=== PATIENT | female | born 1935 | race Caucasian/White ===

== ENCOUNTER 2016-08-10 09:01 | Outpatient (CLI) | payer MEDICARE ==
--- NOTE | 2016-08-10 15:23 | CT ---
CT CHEST WITH CONTRAST CT ABDOMEN AND PELVIS WITH CONTRAST: CT Thoracic Spine with 3D Reformatted Imaging CT Lumbar Spine with 3D Reformatted Imaging Date: 08/10/16 CLINICAL HISTORY: Left breast malignancy. FINDINGS: Scattered patchy opacities of the lungs are most consistent with atelectasis. No evidence of pulmona ry mass or suspicious nodule. Left-sided cardiac pacing device is present with streak artifact limit ing visualization of the chest. Cardiac chambers are enlarged with coronary stent placement seen. Sc attered vascular calcification present. There is multifocal mass-like prominence of the left breast, some of which demonstrates fluid density. Patient has known breast malignancy, although a component may relate to postoperative findings in the correct clinical setting. There is overlying skin thick ening and generalized increased density of the left breast soft tissues. Mild pericardial fluid vers us thickening present. There are splenic granulomatous calcifications. There is fat and soft tissue density of the left adrenal gland most consistent with adrenal myolipoma. Dystrophic calcification o f the right breast is present. No thoracic adenopathy. There is diffuse fecal material throughout th e colon. Colonic diverticula are present. Minimal periappendiceal fat stranding is age-indeterminate . No abnormal dilatation of the appendix. Punctate hepatic calcifications are seen. Evaluation of th e regional skeletal structures reveals degenerative change. The osseous structures are limited in ev aluation on the basis of MIP reformatted imaging which could obscure osseous detail. If there is con cern for osseous metastatic disease, this should be further assessed with dedicated whole body bone scan. IMPRESSION: 1. Abnormal findings of the left breast. The patient has known left breast malignancy, although com ponent may be related to superimposed post treatment changes in the correct clinical context. 2. Heterogeneous enhancement pattern of the liver. Subtle foci of metastatic disease cannot be excl uded on the basis of this exam, although no dominant large metastatic lesion is otherwise identified within the liver. Consider PET/CT for further assessment. 3. 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 4. Constipation. 5. Incomplete assessment of the osseous structures as above, which may be further assessed with ded icated bone scan as clinically necessary. POS: KAYLAH
== END 2016-08-10 09:02 | disposition home or self-care (01) ==
LOC: BURCT 09:01
PROVIDERS: ATTEND Internal Medicine Hematology & Oncology
DX: C50.412 Malignant neoplasm of upper-outer quadrant of left female breast (principal); E27.9 Disorder of adrenal gland, unspecified; K59.00 Constipation, unspecified
CPT/HCPCS: 36415; 71260; 74177; 82565

== ENCOUNTER 2017-01-22 08:59 | Outpatient (CLI) | payer MEDICARE ==
--- NOTE | 2017-01-22 22:58 | CT ---
CT CHEST WITHOUT CONTRAST CT ABDOMEN AND PELVIS WITHOUT CONTRAST 01/22/[address] of the chest, abdomen and pelvis was performed for evaluation in this patient with a prior known malignant neoplasm. Comparison is made with the prior study dated 08/10/16 done at [facility]. Oral contrast was used. IV contrast was withheld today due to a low GFR. Axial slices were acquired, then coronal reconstructions were done. CT OF THE THORAX: The mediastinum shows no evidence of mass or adenopathy. There does appear to be a small pericardial effusion. Coronary artery calcifications were seen, particularly in the LAD. The aorta is normal in caliber. The lungs are clear with no infiltrate, mass, or sign of pleural effusion. The bony structures of the thorax shows some degenerative change of the thoracic spine. No bony dest ructive lesions were detected. Regarding the left breast, the mass lesion seen here on the prior CT scan has greatly reduced in size. IMPRESSION: 1. No evidence for metastatic disease. 2. Cardiomegaly and arteriosclerosis. Small pericardial effusion. 3. Left breast lesion has been reduced in size significantly since the July scan. CT OF THE ABDOMEN AND PELVIS: Spiral CT of the abdomen and pelvis was also compared with the 08/10/16 study. The liver, spleen, pancreas, and aorta showed no acute findings within the limitations of a noncontr ast scan. No hepatic lesions or suggestion of such was seen. A few calcified granulomas are seen in the liver. The internal portions of the patient's gallbladder seem rather dense. I would not be surp rised if there were sludge within it, though the wall does not appear thick. The kidneys showed no m ass or hydronephrosis. Once again noted is a left adrenal mass whose low CT density numbers are sugg estive of a myelolipoma or adenoma. Its 2.4 cm size has not changed over time. CT of the pelvis showed no pelvic masses, fluid collections, or adenopathy. No bony destructive lesi ons were seen in the spine or pelvis. There are extensive degenerative changes in the lumbar spine. IMPRESSION: No acute abdominal or pelvic findings. At most, there may be some very mild constipation. There was no evidence for metastatic disease. POS: HOME
== END 2017-01-22 09:00 | disposition home or self-care (01) ==
LOC: BURCT 08:59
PROVIDERS: ATTEND Internal Medicine Hematology & Oncology
DX: C50.412 Malignant neoplasm of upper-outer quadrant of left female breast (principal); I51.7 Cardiomegaly; I70.90 Unspecified atherosclerosis; I31.3 Pericardial effusion (noninflammatory); N64.9 Disorder of breast, unspecified
CPT/HCPCS: 36415; 71250; 74177; 82565

== ENCOUNTER 2018-06-16 07:44 | Outpatient (CLI) | payer MEDICARE ==
--- NOTE | 2018-06-16 21:33 | CT ---
CT CHEST, ABDOMEN, AND PELVIS WITHOUT CONTRAST: Date: 06-16-18 This study was ordered with IV contrast which would be preferred given the clinical history. Unfortun ately, the patient's GFR was 35 today, so it was felt to be best not to do the scan with IV contrast. A noncontrast study was done covering an area from the apices through the lungs through the pelvis. FINDINGS: CT THORAX: The lungs show no pulmonary nodules, infiltrate, or acute change. There is a questionable subtle grou nd glass area in the right lower lobe posteriorly, but looking back at the prior study I believe it i s there, just harder to see on the prior exam. I do not feel that there has been substantial change s schuyler the 2017 exam that it was compared with. The mediastinum shows no mass or adenopathy. The heart is mildly enlarged. Coronary artery calcifications are present. There is a 1.4 cm calcified mass in the right breast of no concern and it has not changed since the study. Two very faint nodular densities measuring about 6 mm each are seen deep to the right thomas st tissues near the chest wall. I can find them on the old study and they have not changed at all. Th ey are likely to be very small nodes. Some of the tissue in the lower outer quadrant of the right dayne ast seems faintly nodular, but this appearance has also not changed since the 01-22-17 study. A few l ymph nodes are seen in the right axilla, mainly containing fat and they have not changed either. Over all, the appearance of the chest is stable over the interval. CT ABDOMEN AND PELVIS: This noncontrast study showed no acute changes in the liver, spleen, pancreas, gallbladder or kidneys within the limitations of a noncontrast study. There is a 2.1 cm left adrenal mass that is nearly wa ter density in nature, almost certainly an adenoma. It has not changed over the interval. The aorta i s normal in caliber. CT of the pelvis showed no pelvic masses, fluid collections, or inflammatory changes. The thoracolumbar spine shows numerous degenerative changes throughout. A few sclerotic areas, partic ularly in the lumbar region, appear to be degenerative in nature. They have not changed in the interv al. Areas of central canal stenosis are seen at several levels in the lumbar spine, as high as L2. IMPRESSION: No significant findings in the chest, abdomen, or pelvis to suggest recurrent or metastatic disease a t this time. Some nodular areas in the lower outer right breast which are best examined by other mod alities, but seem similar to the prior exam. Exam was primarily compared with the 01-22-17 study. POS: HOME
== END 2018-06-16 07:45 | disposition home or self-care (01) ==
LOC: BURCT 07:44
PROVIDERS: ATTEND Internal Medicine Hematology & Oncology
DX: C80.1 Malignant (primary) neoplasm, unspecified (principal); N64.89 Other specified disorders of breast
CPT/HCPCS: 36415; 71250; 74177; 82565

== ENCOUNTER 2018-12-15 07:49 | Outpatient (CLI) | payer MEDICARE ==
--- NOTE | 2018-12-15 17:07 | CT ---
CT OF THE CHEST WITHOUT CONTRAST: Date: 12-15-18 Comparison: 06-16-18 Due to the patient's low GFR and prior studies to compare with, this exam was done without contrast a nd checked before the patient left the suite. It was felt to be sufficient for diagnostic purposes wi thout the necessity of further contrast being given. FINDINGS: No mediastinal mass or adenopathy was seen within the limitations of a noncontrast study. Coronary ar kathryn calcifications are present. There is no sign of pericardial effusion, though the cardiac size se ems larger today than it was on the prior exam. No pulmonary nodules of concern were seen today. As on the prior study, there was a minimal area of g round glass density in the right lower lobe posteriorly that does not seem much different than before . There are no effusions. The only real change I see since the prior scan is a minor pleural elevatio n in the left posterior hemithorax measuring 7-8 mm in width. It was not present before, though its a ppearance today is not very remarkable. This should be merely watched on future studies. No areas of bony destruction were appreciated on this exam. All visible bony structures appeared inta ct. Scans into the upper abdomen show fullness of the left adrenal gland as before that is presumably a s mall adenoma. This has the low CT numbers needed for such. It has not changed in size. No visible mas ses were seen in the area scanned. Previously, two very small nodules were noted in the soft tissues deep to the right breast tissue bet ween the breast tissue and chest wall, no more than 5 mm in size. Both are still present and neither has changed in any way. The calcified mass seen in the right breast is noted as usual and is unchange d. IMPRESSION: 1. No firm evidence of recurrent or metastatic disease. 2. Tiny soft tissue nodules deep to the right breast tissue near the chest wall have not changed in t he interval. 3. One small pleural based elevation in the left posterior hemithorax which was not present on the pr ior scan. This should be watched, though its current appearance is not very remarkable. 4. Cardiomegaly. The cardiac size appears to have increased slightly since the prior scan. POS: HOME
== END 2018-12-15 07:50 | disposition home or self-care (01) ==
LOC: EEVIPCON 07:49 → BURCT 07:49
PROVIDERS: ATTEND Internal Medicine Hematology & Oncology
DX: C50.919 Malignant neoplasm of unspecified site of unspecified female breast (principal); N63.10 Unspecified lump in the right breast, unspecified quadrant; I51.7 Cardiomegaly
CPT/HCPCS: 36415; 71250; 82565

== ENCOUNTER → 2019-05-26 | Emergency (ER) | payer MEDICARE | LOC: BURERS 07:56 | DX: T38.3X1A Poisoning by insulin and oral hypoglycemic [antidiabetic] drugs, accidental (unintentional), initial encounter (principal); I25.10 Atherosclerotic heart disease of native coronary artery without angina pectoris; I11.0 Hypertensive heart disease with heart failure; I50.9 Heart failure, unspecified; E11.9 Type 2 diabetes mellitus without complications; I48.91 Unspecified atrial fibrillation; Z79.899 Other long term (current) drug therapy; Z79.891 Long term (current) use of opiate analgesic; Z79.4 Long term (current) use of insulin | CPT/HCPCS: 36416; 99284 ==

== ENCOUNTER 2019-06-03 08:37 | Outpatient (CLI) | payer MEDICARE ==
[2019-06-03] MEDS ORDERED: Iopamidol 370 76% 100 ML VIAL ONE (09:25)
--- NOTE | 2019-06-03 13:10 | CT ---
CT CHEST AND ABDOMEN AND PELVIS WITH CONTRAST: History: Relapsed metastatic carcinoma. Comparison: CT examinations May 2018. Findings: The lungs are clear. No pneumothorax. No effusion. No suspicious pulmonary nodule. No mediastinal adenopathy. Heart size is enlarged. Small volume pericardial fluid. There are multiple hypodense masses of the pancreas, largest at the head/body junction measuring 2.5 cm in size. There is a small pancreatic tail cystic mass measuring 1.7 cm. There is mild third spacing of fluid. No dilated loops of large or small bowel. The appendix is visua lized and is normal. No hydronephrosis. Multiple calcified splenic granulomas. Multilevel degenerative disc space changes of the lumbar spine. Mild fullness of the left adrenal gland, similar. The cardiac generator projects over the left hemithorax. Prior left mastectomy. No axillary adenopathy. Nodular density inferior right breast incompletely evaluated on the basis of this exam, although it d oes appear similar. The liver is mildly enlarged with a heterogeneous appearance, likely sequelae of chronic congestive c hanges from diastolic cardiac dysfunction. Gallbladder sludge. Impression: 1. No evidence for metastatic disease within the chest, abdomen, or pelvis. 2. Mild third spacing of fluid. 3. No acute inflammatory process. 4. Marked cardiomegaly with small volume pericardial fluid. 5. Hypodensities of the pancreas for which followup pancreatic protocol MRI is recommended. Transcribed Date/Time: 06/03/2019 1:41 PM
== END 2019-06-03 08:38 | disposition home or self-care (01) ==
LOC: BURCT 08:37
PROVIDERS: ATTEND Internal Medicine Hematology & Oncology
DX: Z01.812 Encounter for preprocedural laboratory examination (principal); C50.412 Malignant neoplasm of upper-outer quadrant of left female breast; N18.3 Chronic kidney disease, stage 3 (moderate); D63.1 Anemia in chronic kidney disease; D50.8 Other iron deficiency anemias; I51.7 Cardiomegaly; K86.89 Other specified diseases of pancreas
CPT/HCPCS: 36415; 71260; 74177; 82565; Q9967

== ENCOUNTER 2019-10-22 13:42 | Inpatient (IN) | payer MEDICARE ==
[2019-10-22] MEDS ORDERED: Dextrose 50% Abboject 50 ML SYRINGE SLOW IVP PRN (18:12)
[2019-10-22] MEDS ORDERED: Dextrose 5% in Water 1,000 ML IV PRN (18:12)
[2019-10-22] MEDS: Senokot S 8.6-50 MG TAB PO SCH (21:11)
[2019-10-22] MEDS: Saccharomyces boulardii 250 MG CAP PO SCH (21:11)
[2019-10-22] MEDS: Temazepam 15 MG CAP PO PRN (21:12)
[2019-10-22] MEDS: Cephalexin 250 MG CAP PO SCH (21:12)
[2019-10-22] MEDS: Potassium Chloride 20 MEQ TAB PO SCH (21:12)
[2019-10-22] MEDS: Apixaban 2.5 MG TAB PO SCH (21:12)
[2019-10-22] MEDS ORDERED: HumaLOG 300 UNITS/3 ML VIAL SC SCH (21:15)
[2019-10-23 05:32] LABS: Hemoglobin 8.3 g/dL (12.0-16.0)
[2019-10-23 05:42] LABS: Anion Gap 14 mmol/L (10-20); BUN (Urea Nitrogen) 19 mg/dL (9.8-20.1); Calc. Creatinine Clearance 0 mL/min (70-130); Calcium 8.8 mg/dL (7.8-10.44); Carbon Dioxide 26 mmol/L (23-31); Chloride 105 mmol/L (98-107); Estimated GFR-MDRD 49; Glucose 186 mg/dL (83-110); Potassium 4.1 mmol/L (3.5-5.1); Sodium 141 mmol/L (136-145)
[2019-10-23] MEDS: Cephalexin 250 MG CAP PO SCH ×3 (08:52→21:41)
[2019-10-23] MEDS: Latanoprost 0.005% Ophth Soln 2.5 ml Bottle EA EYE SCH (08:52)
[2019-10-23] MEDS: Cyanocobalamin (Vitamin B-12) 1,000 MCG TAB PO SCH (08:52)
[2019-10-23] MEDS: Thiamine 100 MG TAB PO SCH (08:52)
[2019-10-23] MEDS: Potassium Chloride 20 MEQ TAB PO SCH ×2 (08:53→21:40)
[2019-10-23] MEDS: Senokot S 8.6-50 MG TAB PO SCH ×2 (08:53→21:40)
[2019-10-23] MEDS: Folic Acid 1 MG TAB PO SCH (08:53)
[2019-10-23] MEDS: Carvedilol 6.25 MG TAB PO SCH ×2 (08:53→17:40)
[2019-10-23] MEDS: Apixaban 2.5 MG TAB PO SCH ×2 (08:53→21:41)
[2019-10-23] MEDS: Losartan Potassium 50 MG TAB PO SCH (08:56)
[2019-10-23] MEDS: Lantus 1000 UNITS/10 ML VIAL SC SCH (08:56)
[2019-10-23] MEDS: Multivit, Therapeutic 1 TAB PO SCH (08:56)
[2019-10-23] MEDS: Polyethylene Glycol 3350 17 GM Packet PO SCH (08:56)
[2019-10-23] MEDS: CALCIUM CARBONATE 600 MG PO SCH (08:57)
[2019-10-23] MEDS: HumaLOG 300 UNITS/3 ML VIAL SC PRN ×4 (08:57→21:41)
[2019-10-23] MEDS: CRANBERRY 500 MG PO SCH (08:57)
[2019-10-23] MEDS: Torsemide 20 MG TAB PO SCH ×2 (08:59→14:24)
[2019-10-23] MEDS ORDERED: Prevnar 13-Val Conj/PF 0.5 ML SYRINGE IM ONE (09:00)
[2019-10-23] MEDS: Temazepam 15 MG CAP PO PRN (21:40)
[2019-10-23] MEDS: Saccharomyces boulardii 250 MG CAP PO SCH (21:40)
--- NOTE | 2019-10-24 06:39 | HP ---
HISTORY OF PRESENT ILLNESS: 84-year-old white female, admitted to [facility] on 10/13/19 with altered mental status with a large right proximal forearm laceration and hematoma status post fall one week prior to arrival. She received one unit of packed cells to correct an initial hemoglobin of 6.4. She has a past medical history of chronic AFib, anticoagulated on Eliquis. Initial ortho, Dr. Wang, was consulted upon her admission advised irrigation, debridement of wound and evacuation hematoma, but family refused to consent to general anesthesia given her fragile state of health at that time. She subsequently underwent ICD interrogation, which revealed ongoing AFib. She has reduced EF at 25%, severe MR and TR, and ischemic cardiomyopathy. Based upon the EP study, it was determined that there was no ventricular tachyarrhythmia that likely contributed to her fall. She was in atrial fibrillation most of the time, but her ventricular rate was well controlled. Based on her CHADS score, It was she is at increased risk for stroke, but cardiology questioned the long-term benefit of continued anticoagulation considering her risk of falls. Infectious Diseases, Dr. Cotto was consulted and after evaluating the wound on 10/15/2019, he advised that long-term antibiotics would likely not be needed; however, at that time he was under the impression that she would be going for surgical debridement, which she never did. ALLERGIES: SULFA. MEDICATIONS: 1. Losartan 25 mg daily. 2. Eliquis 2.5 mg b.i.d. 3. Temazepam 15 mg p.o. nightly p.r.n. 4. Carvedilol 6.25 mg b.i.d. 5. MiraLAX p.o. daily p.r.n. 6. Docusate/Senokot S one tablet b.i.d. p.r.n. 7. Cephalexin 500 mg p.o. t.i.d. 8. Retacrit 40,000 units subcutaneous once weekly. 9. 15 units subcutaneous Lantus daily. 10. Mild sliding scale Humalog. 11. Torsemide 20 mg b.i.d. 12. Calcium carbonate 600 mg p.o. daily. 13. Multivitamin once daily. 14. Florastor 250 mg daily. 15. Latanoprost one drop each eye daily. 16. Pantoprazole 40 mg daily. 17. Potassium chloride 20 mEq b.i.d. 18. B12 1000 mcg p.o. daily. 19. Folic acid 1 mg daily. 20. Thiamine 100 mg daily. 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 She has anemia of chronic disease with adequate renal function. She has ischemic cardiomyopathy, atrial fibrillation, left heart failure with a 25% EF, AICD, anticoagulated. DMT2, hypertension, CAD status post PTCA/stent. PAST SURGICAL HISTORY: Left total mastectomy, ICD with BiV pacemaker, hysterectomy. SOCIAL HISTORY: She lives alone in [place] near her son and [id number]. She is a nonsmoker, no alcohol. FAMILY HISTORY: Noncontributory. REVIEW OF SYSTEMS: Limited as patient is confused and disoriented. PHYSICAL EXAMINATION: VITAL SIGNS: Temperature 98.4, heart rate 94, respirations 18, blood pressure 130/60. She is 96% on room air. GENERAL: Alert and oriented to person only. She is pleasant and cooperative with exam. HEENT: Normocephalic, atraumatic. PERRLA. EOMI. NECK: Supple. No carotid bruits. No JVD without lymphadenopathy or thyromegaly. CV: Regular rate and rhythm without murmur or ectopy. LUNGS: Clear to auscultation bilaterally. Respirations are unlabored. ABDOMEN: Soft, nondistended, nontender. Positive bowel sounds at all 4 quadrants. No masses or megaly. EXTREMITIES: No clubbing, cyanosis, or edema. 2+ peripheral pulses. NEURO: CN 2 through 12 intact. Generalized weakness and decreased coordination. However, bight maker and foot pushes are equal. PERTINENT LABORATORY DATA: Her H and H this morning was 8.3 and 27.5, her platelet count is 250, WBCs 7.4. Her sodium 142, potassium 3.3, chloride 105, carbon dioxide 30, BUN is 21, creatinine 0.98. Her most recent glucose was 150. ASSESSMENT: 1. Open wound right elbow measures approximately 4 x 4 x 4 with large hematoma distal to wound. 2. Chronic atrial fibrillation, anticoagulated on Eliquis; however, her exam today was regular rate and rhythm. 3. Compromised cardiovascular status related to ischemic cardiomyopathy with left heart failure, reduced ejection fraction. PLAN: I spoke with [id number], who says they will be willing to allow her to travel to [place] for day surgery to have the elbow wound irrigated, debrided so that she could then have a wound VAC placed. Continue PT/OT to maximize a return of prior functional and cognitive status. Job ID: [id number] [facility] HOSPITALJameson
[2019-10-24] MEDS: Polyethylene Glycol 3350 17 GM Packet PO SCH (10:06)
[2019-10-24] MEDS: Cephalexin 250 MG CAP PO SCH ×3 (10:06→20:15)
[2019-10-24] MEDS: Latanoprost 0.005% Ophth Soln 2.5 ml Bottle EA EYE SCH (10:06)
[2019-10-24] MEDS: Folic Acid 1 MG TAB PO SCH (10:07)
[2019-10-24] MEDS: Losartan Potassium 50 MG TAB PO SCH (10:07)
[2019-10-24] MEDS: Carvedilol 6.25 MG TAB PO SCH ×2 (10:07→16:27)
[2019-10-24] MEDS: Potassium Chloride 20 MEQ TAB PO SCH ×2 (10:10→20:16)
[2019-10-24] MEDS: Multivit, Therapeutic 1 TAB PO SCH (10:10)
[2019-10-24] MEDS: Cyanocobalamin (Vitamin B-12) 1,000 MCG TAB PO SCH (10:10)
[2019-10-24] MEDS: Apixaban 2.5 MG TAB PO SCH ×2 (10:11→20:15)
[2019-10-24] MEDS: Senokot S 8.6-50 MG TAB PO SCH ×2 (10:11→20:16)
[2019-10-24] MEDS: Lantus 1000 UNITS/10 ML VIAL SC SCH (10:11)
[2019-10-24] MEDS: Thiamine 100 MG TAB PO SCH (10:11)
[2019-10-24] MEDS: CRANBERRY 500 MG PO SCH (13:08)
[2019-10-24] MEDS: CALCIUM CARBONATE 600 MG PO SCH (13:08)
[2019-10-24] MEDS: HumaLOG 300 UNITS/3 ML VIAL SC PRN ×3 (13:09→20:33)
[2019-10-24] MEDS: Torsemide 20 MG TAB PO SCH ×2 (13:14→16:27)
[2019-10-24] MEDS: Temazepam 15 MG CAP PO PRN (20:16)
[2019-10-24] MEDS: Saccharomyces boulardii 250 MG CAP PO SCH (20:16)
[2019-10-25] MEDS: Senokot S 8.6-50 MG TAB PO SCH ×2 (09:33→20:40)
[2019-10-25] MEDS: Polyethylene Glycol 3350 17 GM Packet PO SCH (09:35)
[2019-10-25] MEDS: Torsemide 20 MG TAB PO SCH ×2 (09:36→16:10)
[2019-10-25] MEDS: Losartan Potassium 50 MG TAB PO SCH (09:36)
[2019-10-25] MEDS: Multivit, Therapeutic 1 TAB PO SCH (09:36)
[2019-10-25] MEDS: Carvedilol 6.25 MG TAB PO SCH ×2 (09:38→16:10)
[2019-10-25] MEDS: Cephalexin 250 MG CAP PO SCH ×3 (09:38→20:39)
[2019-10-25] MEDS: Folic Acid 1 MG TAB PO SCH (09:38)
[2019-10-25] MEDS: Thiamine 100 MG TAB PO SCH (09:39)
[2019-10-25] MEDS: Cyanocobalamin (Vitamin B-12) 1,000 MCG TAB PO SCH (09:39)
[2019-10-25] MEDS: Lantus 1000 UNITS/10 ML VIAL SC SCH (09:40)
[2019-10-25] MEDS: Latanoprost 0.005% Ophth Soln 2.5 ml Bottle EA EYE SCH (09:40)
[2019-10-25] MEDS: CALCIUM CARBONATE 600 MG PO SCH (09:44)
[2019-10-25] MEDS: Apixaban 2.5 MG TAB PO SCH ×2 (09:44→20:40)
[2019-10-25] MEDS: CRANBERRY 500 MG PO SCH (09:45)
[2019-10-25] MEDS: Potassium Chloride 20 MEQ TAB PO SCH ×2 (09:45→20:40)
[2019-10-25] MEDS: HumaLOG 300 UNITS/3 ML VIAL SC PRN ×2 (18:59→20:38)
[2019-10-25] MEDS: Saccharomyces boulardii 250 MG CAP PO SCH (20:40)
[2019-10-25] MEDS: Temazepam 15 MG CAP PO PRN (20:43)
[2019-10-26] MEDS: Cyanocobalamin (Vitamin B-12) 1,000 MCG TAB PO SCH (08:29)
[2019-10-26] MEDS: Polyethylene Glycol 3350 17 GM Packet PO SCH (08:29)
[2019-10-26] MEDS: Latanoprost 0.005% Ophth Soln 2.5 ml Bottle EA EYE SCH (08:29)
[2019-10-26] MEDS: Multivit, Therapeutic 1 TAB PO SCH (08:30)
[2019-10-26] MEDS: Cephalexin 250 MG CAP PO SCH ×3 (08:30→20:53)
[2019-10-26] MEDS: Potassium Chloride 20 MEQ TAB PO SCH ×2 (08:30→20:52)
[2019-10-26] MEDS: Thiamine 100 MG TAB PO SCH (08:30)
[2019-10-26] MEDS: Apixaban 2.5 MG TAB PO SCH ×2 (08:30→20:54)
[2019-10-26] MEDS: Torsemide 20 MG TAB PO SCH ×2 (08:30→14:22)
[2019-10-26] MEDS: Lantus 1000 UNITS/10 ML VIAL SC SCH (08:30)
[2019-10-26] MEDS: Senokot S 8.6-50 MG TAB PO SCH ×2 (08:30→20:55)
[2019-10-26] MEDS: Folic Acid 1 MG TAB PO SCH (08:30)
[2019-10-26] MEDS: HumaLOG 300 UNITS/3 ML VIAL SC PRN ×4 (08:31→20:59)
[2019-10-26] MEDS: CALCIUM CARBONATE 600 MG PO SCH (08:31)
[2019-10-26] MEDS: CRANBERRY 500 MG PO SCH (08:31)
[2019-10-26] MEDS: Carvedilol 6.25 MG TAB PO SCH ×2 (09:11→17:34)
[2019-10-26] MEDS: Losartan Potassium 50 MG TAB PO SCH (09:13)
[2019-10-26] MEDS: Saccharomyces boulardii 250 MG CAP PO SCH (20:51)
[2019-10-26] MEDS: Temazepam 15 MG CAP PO PRN (20:55)
[2019-10-26] MEDS: hydrOXYzine 10 MG TAB PO SCH (21:03)
[2019-10-27] MEDS: hydrOXYzine 10 MG TAB PO SCH ×3 (06:09→20:42)
[2019-10-27] MEDS: Polyethylene Glycol 3350 17 GM Packet PO SCH (09:43)
[2019-10-27] MEDS: Cephalexin 250 MG CAP PO SCH ×3 (09:45→20:41)
[2019-10-27] MEDS: Multivit, Therapeutic 1 TAB PO SCH (09:45)
[2019-10-27] MEDS: Potassium Chloride 20 MEQ TAB PO SCH ×2 (09:45→20:41)
[2019-10-27] MEDS: Apixaban 2.5 MG TAB PO SCH ×2 (09:46→20:41)
[2019-10-27] MEDS: Thiamine 100 MG TAB PO SCH (09:46)
[2019-10-27] MEDS: Folic Acid 1 MG TAB PO SCH (09:46)
[2019-10-27] MEDS: Cyanocobalamin (Vitamin B-12) 1,000 MCG TAB PO SCH (09:46)
[2019-10-27] MEDS: Losartan Potassium 50 MG TAB PO SCH (09:47)
[2019-10-27] MEDS: Carvedilol 6.25 MG TAB PO SCH ×2 (09:48→16:31)
[2019-10-27] MEDS: Lantus 1000 UNITS/10 ML VIAL SC SCH (09:51)
[2019-10-27] MEDS: Latanoprost 0.005% Ophth Soln 2.5 ml Bottle EA EYE SCH (09:54)
[2019-10-27] MEDS: CALCIUM CARBONATE 600 MG PO SCH (09:59)
[2019-10-27] MEDS: CRANBERRY 500 MG PO SCH (10:02)
[2019-10-27] MEDS: Senokot S 8.6-50 MG TAB PO SCH ×2 (10:03→20:41)
[2019-10-27] MEDS: Torsemide 20 MG TAB PO SCH ×2 (10:04→14:10)
[2019-10-27] MEDS: HumaLOG 300 UNITS/3 ML VIAL SC PRN (12:59)
[2019-10-27] MEDS: Saccharomyces boulardii 250 MG CAP PO SCH (20:41)
[2019-10-27] MEDS: Temazepam 15 MG CAP PO PRN (20:41)
[2019-10-28] MEDS: hydrOXYzine 10 MG TAB PO SCH ×3 (05:03→21:17)
[2019-10-28] MEDS: Polyethylene Glycol 3350 17 GM Packet PO SCH (09:03)
[2019-10-28] MEDS: Latanoprost 0.005% Ophth Soln 2.5 ml Bottle EA EYE SCH (09:03)
[2019-10-28] MEDS: Potassium Chloride 20 MEQ TAB PO SCH ×2 (09:04→21:17)
[2019-10-28] MEDS: Cephalexin 250 MG CAP PO SCH ×3 (09:04→21:16)
[2019-10-28] MEDS: Multivit, Therapeutic 1 TAB PO SCH (09:04)
[2019-10-28] MEDS: Calcium Carbonate 500 MG TAB PO SCH (09:05)
[2019-10-28] MEDS: Senokot S 8.6-50 MG TAB PO SCH ×2 (09:08→21:17)
[2019-10-28] MEDS: Thiamine 100 MG TAB PO SCH (09:08)
[2019-10-28] MEDS: Losartan Potassium 50 MG TAB PO SCH (09:09)
[2019-10-28] MEDS: Cyanocobalamin (Vitamin B-12) 1,000 MCG TAB PO SCH (09:09)
[2019-10-28] MEDS: Folic Acid 1 MG TAB PO SCH (09:09)
[2019-10-28] MEDS: Apixaban 2.5 MG TAB PO SCH ×2 (09:10→21:16)
[2019-10-28] MEDS: Carvedilol 6.25 MG TAB PO SCH ×2 (09:10→17:36)
[2019-10-28] MEDS: Lantus 1000 UNITS/10 ML VIAL SC SCH (09:16)
[2019-10-28] MEDS: Torsemide 20 MG TAB PO SCH ×2 (09:21→14:13)
[2019-10-28] MEDS: HumaLOG 300 UNITS/3 ML VIAL SC PRN ×3 (12:52→21:17)
[2019-10-28] MEDS: Fluconazole 100 MG TAB PO SCH (14:06)
[2019-10-28] MEDS: Saccharomyces boulardii 250 MG CAP PO SCH (21:17)
[2019-10-29] MEDS: hydrOXYzine 10 MG TAB PO SCH ×3 (05:47→20:25)
[2019-10-29] MEDS ORDERED: EPOETIN ALFA-EPBX (ESRD) 40,000 UNIT/ML VIAL SC SCH (09:00)
[2019-10-29] MEDS: Lantus 1000 UNITS/10 ML VIAL SC SCH (10:04)
[2019-10-29] MEDS: HumaLOG 300 UNITS/3 ML VIAL SC PRN ×3 (10:06→18:35)
[2019-10-29] MEDS: Latanoprost 0.005% Ophth Soln 2.5 ml Bottle EA EYE SCH (10:09)
[2019-10-29] MEDS: Apixaban 2.5 MG TAB PO SCH ×2 (10:11→20:25)
[2019-10-29] MEDS: Losartan Potassium 50 MG TAB PO SCH (10:11)
[2019-10-29] MEDS: Senokot S 8.6-50 MG TAB PO SCH ×2 (10:11→20:24)
[2019-10-29] MEDS: Polyethylene Glycol 3350 17 GM Packet PO SCH (10:11)
[2019-10-29] MEDS: Thiamine 100 MG TAB PO SCH (10:11)
[2019-10-29] MEDS: Folic Acid 1 MG TAB PO SCH (10:11)
[2019-10-29] MEDS: Cyanocobalamin (Vitamin B-12) 1,000 MCG TAB PO SCH (10:12)
[2019-10-29] MEDS: Cephalexin 250 MG CAP PO SCH ×3 (10:12→20:23)
[2019-10-29] MEDS: Carvedilol 6.25 MG TAB PO SCH ×2 (10:13→16:54)
[2019-10-29] MEDS: Multivit, Therapeutic 1 TAB PO SCH (10:13)
[2019-10-29] MEDS: Potassium Chloride 20 MEQ TAB PO SCH ×2 (10:13→20:24)
[2019-10-29] MEDS: Torsemide 20 MG TAB PO SCH ×2 (10:28→14:29)
[2019-10-29] MEDS: Calcium Carbonate 500 MG TAB PO SCH (14:30)
[2019-10-29] MEDS ORDERED: Calcium Carbonate 500 MG TAB PO SCH (14:30)
[2019-10-29] MEDS: Saccharomyces boulardii 250 MG CAP PO SCH (20:23)
[2019-10-29] MEDS ORDERED: HumaLOG 300 UNITS/3 ML VIAL SC PRN (20:39)
[2019-10-30] MEDS: hydrOXYzine 10 MG TAB PO SCH ×3 (05:57→20:55)
[2019-10-30] MEDS: HumaLOG 300 UNITS/3 ML VIAL SC PRN ×4 (08:17→20:45)
[2019-10-30] MEDS: Lantus 1000 UNITS/10 ML VIAL SC SCH (08:18)
[2019-10-30] MEDS: Cephalexin 250 MG CAP PO SCH ×3 (08:20→20:46)
[2019-10-30] MEDS: Polyethylene Glycol 3350 17 GM Packet PO SCH (08:21)
[2019-10-30] MEDS: Losartan Potassium 50 MG TAB PO SCH (08:21)
[2019-10-30] MEDS: Folic Acid 1 MG TAB PO SCH (08:22)
[2019-10-30] MEDS: Thiamine 100 MG TAB PO SCH (08:22)
[2019-10-30] MEDS: Calcium Carbonate 500 MG TAB PO SCH (08:22)
[2019-10-30] MEDS: Senokot S 8.6-50 MG TAB PO SCH ×2 (08:23→20:47)
[2019-10-30] MEDS: Cyanocobalamin (Vitamin B-12) 1,000 MCG TAB PO SCH (08:23)
[2019-10-30] MEDS: Multivit, Therapeutic 1 TAB PO SCH (08:23)
[2019-10-30] MEDS: Carvedilol 6.25 MG TAB PO SCH ×2 (08:23→15:36)
[2019-10-30] MEDS: Apixaban 2.5 MG TAB PO SCH ×2 (08:23→20:46)
[2019-10-30] MEDS: Latanoprost 0.005% Ophth Soln 2.5 ml Bottle EA EYE SCH (08:24)
[2019-10-30] MEDS: Potassium Chloride 20 MEQ TAB PO SCH ×2 (08:24→20:46)
[2019-10-30] MEDS: Torsemide 20 MG TAB PO SCH ×2 (12:25→15:37)
[2019-10-30] MEDS: Saccharomyces boulardii 250 MG CAP PO SCH (20:46)
[2019-10-31] MEDS: hydrOXYzine 10 MG TAB PO SCH ×3 (05:11→21:18)
[2019-10-31] MEDS: Cephalexin 250 MG CAP PO SCH ×3 (08:49→21:19)
[2019-10-31] MEDS: Potassium Chloride 20 MEQ TAB PO SCH ×2 (08:50→21:21)
[2019-10-31] MEDS: Losartan Potassium 50 MG TAB PO SCH (08:50)
[2019-10-31] MEDS: Apixaban 2.5 MG TAB PO SCH ×2 (08:50→21:20)
[2019-10-31] MEDS: Carvedilol 6.25 MG TAB PO SCH ×2 (08:50→17:57)
[2019-10-31] MEDS: Cyanocobalamin (Vitamin B-12) 1,000 MCG TAB PO SCH (08:50)
[2019-10-31] MEDS: Folic Acid 1 MG TAB PO SCH (08:50)
[2019-10-31] MEDS: Multivit, Therapeutic 1 TAB PO SCH (08:50)
[2019-10-31] MEDS: Calcium Carbonate 500 MG TAB PO SCH (08:51)
[2019-10-31] MEDS: Thiamine 100 MG TAB PO SCH (08:51)
[2019-10-31] MEDS: Polyethylene Glycol 3350 17 GM Packet PO SCH (08:51)
[2019-10-31] MEDS: Senokot S 8.6-50 MG TAB PO SCH ×2 (08:51→21:19)
[2019-10-31] MEDS: Lantus 1000 UNITS/10 ML VIAL SC SCH (09:45)
[2019-10-31] MEDS: HumaLOG 300 UNITS/3 ML VIAL SC PRN ×2 (09:45→17:59)
[2019-10-31] MEDS: Torsemide 20 MG TAB PO SCH ×2 (09:46→15:38)
[2019-10-31] MEDS: Fluconazole 100 MG TAB PO SCH (15:39)
[2019-10-31] MEDS: Latanoprost 0.005% Ophth Soln 2.5 ml Bottle EA EYE SCH (15:42)
[2019-10-31] MEDS ORDERED: HumaLOG 300 UNITS/3 ML VIAL SC SCH (20:15)
[2019-10-31] MEDS: Saccharomyces boulardii 250 MG CAP PO SCH (21:20)
[2019-11-01] MEDS: hydrOXYzine 10 MG TAB PO SCH ×3 (05:12→21:44)
[2019-11-01] MEDS: Apixaban 2.5 MG TAB PO SCH ×2 (09:01→20:57)
[2019-11-01] MEDS: Folic Acid 1 MG TAB PO SCH (09:01)
[2019-11-01] MEDS: Cephalexin 250 MG CAP PO SCH ×3 (09:01→20:55)
[2019-11-01] MEDS: Calcium Carbonate 500 MG TAB PO SCH (09:01)
[2019-11-01] MEDS: Potassium Chloride 20 MEQ TAB PO SCH ×2 (09:01→20:54)
[2019-11-01] MEDS: Thiamine 100 MG TAB PO SCH (09:02)
[2019-11-01] MEDS: Multivit, Therapeutic 1 TAB PO SCH (09:02)
[2019-11-01] MEDS: Senokot S 8.6-50 MG TAB PO SCH ×2 (09:02→20:55)
[2019-11-01] MEDS: Torsemide 20 MG TAB PO SCH ×2 (09:02→14:43)
[2019-11-01] MEDS: Losartan Potassium 50 MG TAB PO SCH (09:02)
[2019-11-01] MEDS: Carvedilol 6.25 MG TAB PO SCH ×2 (09:03→17:52)
[2019-11-01] MEDS: Cyanocobalamin (Vitamin B-12) 1,000 MCG TAB PO SCH (09:03)
[2019-11-01] MEDS: Polyethylene Glycol 3350 17 GM Packet PO SCH (09:04)
[2019-11-01] MEDS: Lantus 1000 UNITS/10 ML VIAL SC SCH (09:04)
[2019-11-01] MEDS: Latanoprost 0.005% Ophth Soln 2.5 ml Bottle EA EYE SCH (09:05)
[2019-11-01] MEDS: HumaLOG 300 UNITS/3 ML VIAL SC PRN ×3 (12:18→20:53)
[2019-11-01] MEDS: Saccharomyces boulardii 250 MG CAP PO SCH (20:55)
[2019-11-02 04:06] VITALS: BMI 23.7
[2019-11-02] MEDS: hydrOXYzine 10 MG TAB PO SCH ×3 (05:28→21:14)
[2019-11-02 05:34] LABS: Platelet Count 215 thou/uL (130-400)
[2019-11-02] MEDS: Lantus 1000 UNITS/10 ML VIAL SC SCH (09:20)
[2019-11-02] MEDS: Cephalexin 250 MG CAP PO SCH ×3 (09:21→21:14)
[2019-11-02] MEDS: Latanoprost 0.005% Ophth Soln 2.5 ml Bottle EA EYE SCH (09:21)
[2019-11-02] MEDS: Carvedilol 6.25 MG TAB PO SCH ×2 (09:22→17:48)
[2019-11-02] MEDS: Polyethylene Glycol 3350 17 GM Packet PO SCH (09:22)
[2019-11-02] MEDS: Losartan Potassium 50 MG TAB PO SCH (09:23)
[2019-11-02] MEDS: Thiamine 100 MG TAB PO SCH (09:23)
[2019-11-02] MEDS: Senokot S 8.6-50 MG TAB PO SCH ×2 (09:23→21:15)
[2019-11-02] MEDS: Calcium Carbonate 500 MG TAB PO SCH (09:23)
[2019-11-02] MEDS: Cyanocobalamin (Vitamin B-12) 1,000 MCG TAB PO SCH (09:23)
[2019-11-02] MEDS: Multivit, Therapeutic 1 TAB PO SCH (09:23)
[2019-11-02] MEDS: Folic Acid 1 MG TAB PO SCH (09:23)
[2019-11-02] MEDS: Apixaban 2.5 MG TAB PO SCH ×2 (09:24→21:15)
[2019-11-02] MEDS: Potassium Chloride 20 MEQ TAB PO SCH ×2 (09:24→21:14)
[2019-11-02] MEDS: HumaLOG 300 UNITS/3 ML VIAL SC PRN ×2 (09:26→17:47)
[2019-11-02] MEDS: Torsemide 20 MG TAB PO SCH ×2 (13:39)
[2019-11-02] MEDS: Saccharomyces boulardii 250 MG CAP PO SCH (21:14)
[2019-11-03 05:04] VITALS: TEMP 97.5
[2019-11-03] MEDS: hydrOXYzine 10 MG TAB PO SCH ×2 (06:11→14:29)
[2019-11-03] MEDS: Lantus 1000 UNITS/10 ML VIAL SC SCH (08:20)
[2019-11-03] MEDS: Cephalexin 250 MG CAP PO SCH ×2 (08:21→14:29)
[2019-11-03] MEDS: Polyethylene Glycol 3350 17 GM Packet PO SCH (08:21)
[2019-11-03] MEDS: Senokot S 8.6-50 MG TAB PO SCH (08:22)
[2019-11-03] MEDS: Potassium Chloride 20 MEQ TAB PO SCH (08:22)
[2019-11-03] MEDS: Cyanocobalamin (Vitamin B-12) 1,000 MCG TAB PO SCH (08:22)
[2019-11-03] MEDS: Losartan Potassium 50 MG TAB PO SCH (08:22)
[2019-11-03] MEDS: Calcium Carbonate 500 MG TAB PO SCH (08:22)
[2019-11-03] MEDS: Thiamine 100 MG TAB PO SCH (08:22)
[2019-11-03] MEDS: Multivit, Therapeutic 1 TAB PO SCH (08:22)
[2019-11-03] MEDS: Apixaban 2.5 MG TAB PO SCH (08:25)
[2019-11-03] MEDS: Folic Acid 1 MG TAB PO SCH (08:25)
[2019-11-03] MEDS: Torsemide 20 MG TAB PO SCH ×2 (08:26→14:29)
[2019-11-03] MEDS: Latanoprost 0.005% Ophth Soln 2.5 ml Bottle EA EYE SCH (08:26)
[2019-11-03] MEDS: Carvedilol 6.25 MG TAB PO SCH ×2 (08:26→16:36)
[2019-11-03 08:30] VITALS: BP 134/63
[2019-11-03] MEDS: HumaLOG 300 UNITS/3 ML VIAL SC PRN (12:37)
[2019-11-03] MEDS ORDERED: Temazepam 15 MG CAP PO PRN (13:49)
--- NOTE | 2019-11-04 15:56 | DIS ---
DATE OF ADMISSION: 10/22/2019 DATE OF DISCHARGE: 11/03/2019 DISCHARGE DIAGNOSES: Advanced dementia; chronic atrial fibrillation, anticoagulated on Eliquis; compromised cardiovascular status related to ischemic cardiomyopathy with left heart failure, reduced ejection fraction; and open wound right elbow with hematoma. HOSPITAL COURSE: This is an 84-year-old female admitted to [facility] on 10/13/2019 with altered mental status and large right proximal forearm laceration with hematoma status post fall one week prior to arrival. She received 1 unit of packed cell to correct initial chronic anemia, hemoglobin of 6.4. She is followed by Oncology Dr. Varela, and received weekly epoetin injection. She has a past medical history of chronic atrial fibrillation, anticoagulated on Eliquis. Her initial Ortho consult with Dr. Wang recommended she go to the OR for wound debridement and evacuation of hematoma. Because of her fragile state her family refused to consent the general anesthesia. She subsequently underwent ICD interrogation which revealed ongoing atrial fibrillation. She has reduced the EF of 25% with severe mitral regurgitation and tricuspid regurgitation. She also has ischemic cardiomyopathy. Based upon the EP study, it was determined that there was no ventricular tachyarrhythmia that likely contributed to her fall before most likely more related to confusion and advanced mental status cognitive decline. She has an increased risk for stroke because of her atrial fibrillation, but she was also at risk for hemorrhage because of her risk of fall, this was discussed with family at length and they agreed to follow up post discharge with Cardiology to determine whether or not she should be continued on Eliquis. It was recommended that she be considered for a long-term care, transferred for continued wound care and safety and PT, but family insisted that they wanted to bring her home and felt that once she was in more familiar environment that her cognitive abilities and her mental status would improve. She also has a past medical history of type 2 diabetes. DIET: Diabetic diet. ACTIVITY: As tolerated. DISPOSITION: She will be going home into the care of her son and daughter in law. Her home [place] steps [place] home [place] the same property. They have her home monitored on video to they can supervise her closely. ALLERGIES: TO SULFA. CODE STATUS: Full code. MEDICATIONS: 1. Losartan 25 mg daily. 2. Eliquis 2.5 mg b.i.d. 3. Temazepam 15 mg p.o. at bedtime p.r.n. 4. Carvedilol 6.25 mg b.i.d. 5. MiraLAX p.o. daily p.r.n. 6. Docusate/Senokot S one tablet b.i.d. p.r.n. 7. Retacrit 40,000 units subcutaneous once weekly. 8. 15 units subcutaneous Lantus daily. 9. Torsemide 20 mg b.i.d. 10. Calcium carbonate 600 mg p.o. daily. 11. Multivitamin once daily. 12. Latanoprost one drop each eye daily. 13. Pantoprazole 40 mg daily. 14. Potassium chloride 20 mEq b.i.d. 15. B12 1000 mcg p.o. daily. 16. Folic acid 1 mg daily. 17. Thiamine 100 mg daily. FOLLOWUP: She is to follow up with her PCP and Cardiology within one week. Job ID: [id number] MTDD
== END 2019-11-03 17:30 | disposition home health service (06) | DRG 605 ==
LOC: BURMED 17:17
PROVIDERS: ADMIT Family Medicine; ATTEND Family Medicine
DX: S51.001A Unspecified open wound of right elbow, initial encounter (principal); I48.20 Chronic atrial fibrillation, unspecified; I50.22 Chronic systolic (congestive) heart failure; I25.5 Ischemic cardiomyopathy; I08.1 Rheumatic disorders of both mitral and tricuspid valves; I48.91 Unspecified atrial fibrillation; D63.8 Anemia in other chronic diseases classified elsewhere; I25.10 Atherosclerotic heart disease of native coronary artery without angina pectoris; E11.9 Type 2 diabetes mellitus without complications; Z79.01 Long term (current) use of anticoagulants; Z88.2 Allergy status to sulfonamides; Z95.810 Presence of automatic (implantable) cardiac defibrillator; Z79.4 Long term (current) use of insulin; Z90.12 Acquired absence of left breast and nipple; Z90.710 Acquired absence of both cervix and uterus; Z95.5 Presence of coronary angioplasty implant and graft; Z85.3 Personal history of malignant neoplasm of breast; Z91.81 History of falling
CPT/HCPCS: 36415; 36416; 80048; 82565; 85014; 85018; 85049; 97602; J1815; Q5105

== ENCOUNTER 2019-12-21 12:23 | Emergency (ER) | payer MEDICARE, OTHER ==
[2019-12-21] MEDS ORDERED: Cefepime 2 GM VIAL ONE (12:59)
[2019-12-21 13:22] LABS: INR-International Normal Ratio 1.3; Prothrombin Time 15.9 sec (12.0-14.7)
[2019-12-21 13:33] LABS: ALT (SGPT) 34 U/L (8-55); AST (SGOT) 47 U/L (5-34); Albumin 3.9 g/dL (3.4-4.8); Alkaline Phosphatase 112 U/L (40-110); Anion Gap 18 mmol/L (10-20); BUN (Urea Nitrogen) 25 mg/dL (9.8-20.1); Bilirubin, Total 1.6 mg/dL (0.2-1.2); CK (CPK) 53 U/L (29-168); Calc. Creatinine Clearance 0 mL/min (70-130); Calcium 8.6 mg/dL (7.8-10.44); Carbon Dioxide 25 mmol/L (23-31); Chloride 108 mmol/L (98-107); Estimated GFR-MDRD 47; Globulin 2.8 g/dL (2.4-3.5); Glucose 87 mg/dL (83-110); Lipase 24 U/L (8-78); Protein, Total 6.7 g/dL (6.0-8.3); Sodium 147 mmol/L (136-145)
[2019-12-21 13:34] LABS: Hemoglobin 11.7 g/dL (12.0-16.0); Mean Corpuscular HGB CONC 29.1 g/dL (32.0-36.0); Mean Corpuscular Hemoglobin 34.1 pg (27.0-31.0); Mean Platelet Volume 8.2 fL (7.4-10.4); Platelet Count 187 thou/uL (130-400); RBC Distribution Width 23.5 % (11.5-14.5); Red Blood Cell (RBC) Count 3.44 mill/uL (4.20-5.40); White Blood Cell (WBC) Count 7.1 thou/uL (4.8-10.8)
[2019-12-21 13:39] LABS: #Basophils 0.1 thou/uL (0.0-0.2); #Eosinphils 0.2 thou/uL (0.0-0.7); #Lymphocytes 0.9 thou/uL (1.20-3.40); #Monocytes 0.5 thou/uL (0.11-0.59); #Neutrophils 5.5 thou/uL (1.40-6.50); %Basophils 0.8 % (0.0-1.0); %Eosinophils 3.3 % (0.0-10.0); %Lymphocytes 12.6 % (21.0-51.0); %Monocytes 6.4 % (0.0-10.0); %Neutrophils 76.9 % (42.0-75.0); Anisocytosis SLIGHT = 6-15 cells (100X) (0-5/hpf); Band 11 % (5-11); Crenated RBC SLIGHT = 1-5 cells (100X) (None Seen); Eosinophils 5 % (0-10); Lymphocytes 13 % (21-51); MDiff Complete? YES; Macrocytosis SLIGHT = 6-15 cells (100X) (0-5/hpf); Monocytes 4 % (0-10); Neutrophil 67 % (42-75); Platelet Morphology Comment Appears Adequate; Target Cells SLIGHT = 2-5 cells (100X) (0-1/hpf)
[2019-12-21] MEDS ORDERED: Aspirin Chewable 81 MG TAB ONE (14:25)
[2019-12-21 14:33] LABS: Bilirubin Negative (Negative); Blood, Urine Negative (Negative); Clarity Cloudy (Clear); Glucose, Urine (Dipstick) Negative (Negative); Ketone, Urine Negative (Negative); Leukocyte Negative (Negative); Nitrite Positive (Negative); Protein, Urine (Dipstick) Negative (Neg-Trace); Urobilinogen 0.2 mg/dL (Less than 2)
[2019-12-21 14:37] LABS: RBC/HPF None Seen HPF (0-3); WBC/HPF 0-3 HPF (0-3)
[2019-12-21 14:38] LABS: Bacteria/HPF 4+ HPF (None Seen); Squamous Epithelial 0-3 HPF (0-3)
--- NOTE | 2019-12-21 18:41 | CT ---
CT OF THE BRAIN WITOUT CONTRAST: Date: 12-21-[address] was done and compared with the 10-13-2019 study from [facility]. FINDINGS: Diffuse atrophy and mild compensatory dilatation of the ventricles seems no different than before. Pa tchy deep white matter lucency is typical of chronic microvascular ischemia. There is no sign of intr acranial bleeding or extraaxial hematoma. I do not see any evidence of acute stroke, mass or edema. T he skull appears intact. The visible paranasal sinuses are clear. The left mastoid air cells are slig htly under aerated compared to the right, no different than before. IMPRESSION: No acute intracranial findings. Preliminary report called to Dr. Awan at 1358 on 12-21-2019. POS: HOME
--- NOTE | 2019-12-21 18:46 | CT ---
CT OF THE CERVICAL SPINE: Date: 12-21-[address] was done following trauma. Axial slices were acquired followed by coronal and sagitt al reconstructions. FINDINGS: No fracture was seen at any cervical level. The C1-2 dens distance is normal and the soft tissues are normal in thickness. The disc spaces are normal in height. Arthritic changes are present but are rel atively minor for age. Attention is drawn to the C6 vertebral body. It has an area of pronounced sclerosis in it which was n ot present on a prior CT dated 02-28-15. Given the patient's clinical history, I would be worried abou t metastatic disease to this bone. There is certainly no loss of the integrity of the bone at [facility], with no bony protrusions or dislocation. Other extracervical findings include prominence in size of the thyroid gland (left greater than right ), but the gland is seen incompletely. Additionally, the hydrant setter view on this patient suggests that the re is vascular congestion in the chest and the axial views which go through the top of the lungs sugg est a medium sized right pleural effusion. IMPRESSION: 1. No fracture or dislocation seen. 2. Sclerotic area in the C6 vertebral body, not present in 2015. Metastatic disease is suggested, par ticularly given the clinical history. 3. Right pleural effusion and apparent vascular congestion. Further follow up advised. Findings discussed with Dr. Awan at 1358 on 12-21-2019. POS: HOME
--- NOTE | 2019-12-21 19:32 | RAD ---
PORTABLE CHEST: Date: 12-21-2019 An AP portable film at 1423 is compared with a 10-13-2019 study from [facility]. FINDINGS: Moderate cardiomegaly is similar to before. The AICD remains in place. There is definite vascular con gestion today. There may be some small pleural effusions. There is a relative increased density in th e right hilar region, just to the right of the right atrium. I cannot tell if this a prominent pulmon urbano artery, actual infiltrate, or other pathology. It probably should be followed on follow up films. IMPRESSION: 1. Congestive heart failure. 2. Increased density just to the right of the right atrium. See discussion above. POS: HOME
== END 2019-12-21 14:54 | disposition short-term general hospital (02) ==
LOC: BURERS 12:23
DX: A41.9 Sepsis, unspecified organism (principal); T68.XXXA Hypothermia, initial encounter; E11.649 Type 2 diabetes mellitus with hypoglycemia without coma; I11.0 Hypertensive heart disease with heart failure; I50.9 Heart failure, unspecified; L97.919 Non-pressure chronic ulcer of unspecified part of right lower leg with unspecified severity; I25.10 Atherosclerotic heart disease of native coronary artery without angina pectoris; I48.91 Unspecified atrial fibrillation; I49.9 Cardiac arrhythmia, unspecified; Z95.0 Presence of cardiac pacemaker; Z79.899 Other long term (current) drug therapy; Z79.01 Long term (current) use of anticoagulants; Z79.4 Long term (current) use of insulin
CPT/HCPCS: 36415; 36416; 70450; 71045; 72125; 80053; 81003; 81015; 82550; 83605; 83690; 83880; 84443; 84484; 85025; 85610; 87040; 87077; 87086; 87186; 93005; 96365; 96367; J0692; J3370